=== PATIENT | male | born 1950 | race Caucasian/White ===

== ENCOUNTER 2025-04-26 17:53 | Observation (INO) | payer OTHER, SELFPAY ==
[2025-04-26 17:54] VITALS: BP 155/75; PULSE 92; RESP 16; TEMP 37.3; O2SAT 96; BMI 28.0
[2025-04-26 18:36] VITALS: BP 117/89; PULSE 79
--- NOTE | 2025-04-26 19:24 | CT_ITS ---
PROCEDURE: CT BRAIN/HEAD WITHOUT CONTRAST 04/26/2025 REASON FOR EXAM: FALL, UNWITNESSED TECHNIQUE: Procedure Code: CTBR Modality: CT Procedure: BRAIN/HEAD WITHOUT CONTRAST Coronal and Sagittal reconstruction series were provided. One or more dose reduction techniques were used (e.g., Automated exposure control, adjustment of the mA and/or kV according to patient size, use of iterative reconstruction technique. RADIATION DOSE SUMMARY: CTDlvol: 44.99 mGy DLP: 829.85 mGycm COMPARISON: None available. FINDINGS: No acute intracranial hemorrhage, extra-axial collection, mass effect or evidence of acute infarct. Moderate-advanced generalized brain parenchymal volume loss with associated ex vacuo ventricular enlargement. Mild chronic microangiopathic changes. Grossly unremarkable orbits. Intact skull base and calvarium. Well-aerated paranasal sinuses and mastoid air cells. CT/Brain/Head without Contrast IMPRESSION: No acute intracranial abnormality. Moderate-advanced generalized parenchymal volume loss. Reading Location: [id number]
--- NOTE | 2025-04-26 19:24 | RAD_ITS ---
PROCEDURE: CHEST 1 VIEW (PORTABLE) 04/26/2025 REASON FOR EXAM: FALL TECHNIQUE: Frontal view of the chest. COMPARISON: none FINDINGS: Mild pulmonary vascular congestion. No focal consolidation. No pleural effusion or pneumothorax. Cardiac silhouette is within normal limits. No acute fractures. RAD/Chest 1 View (Portable) IMPRESSION: Mild pulmonary vascular congestion. No focal consolidation. No acute fractures . Reading Location: [facility]
--- NOTE | 2025-04-26 19:25 | EKG12_ITS ---
Test Reason : DYSRHYTHMIA Blood Pressure : */* mmHG Vent. Rate : 111 BPM Atrial Rate : 111 BPM P-R Int : 182 ms QRS Dur : 82 ms QT Int : 332 ms P-R-T Axes : 67 52 39 degrees QTcB Int : 451 ms Sinus tachycardia Nonspecific ST abnormality Abnormal ECG Confirmed by Tom Irvin ([id number]), photo editor NAN GORDON ([id number]) on 04/27/2025 10:32:34 AM Referred By: Confirmed By: Tom Irvin
--- NOTE | 2025-04-26 19:26 | EDS_ITS ---
HPI HPI - Fall History of Present Illness Chief Complaint: Fall Informant: patient Narrative Narrative: Patient is a 75-year-old male with history of hypertension, hyperlipidemia, chronic venous insufficiency and seems to be dementia (ANO x 1 at baseline) as well as remote history of tobacco use presenting from [facility] (independent living) after he had a fall earlier today and is having right hip pain. EMS gave report. They state he is ANO x 1 at baseline. Patient does not think he hit his head. He has been able to walk but does continue to have right hip pain. He has no other complaints or concerns at this time. Does not recall how he fell and cannot answer why he fell [facility] Medical History Allergic rhinitis GERD (gastroesophageal reflux disease) Mood disorder Anxiety and depression CKD (chronic kidney disease), stage II HLD (hyperlipidemia) HTN (hypertension) Venous insufficiency of both lower extremities Home Medications ?Medication ?Instructions ?Recorded ?Last Taken ?Type amlodipine 5 mg tablet 5 mg PO DAILY 11/14/22 Unkno wn History aspirin 81 mg chewable tablet 81 mg PO DAILY 11/14/22 Unknown History benztropine 2 mg tablet 2 mg PO QHS 11/14/22 Unknown History cholecalciferol (vitamin D3) 50 50 mcg PO DAILY Unknown History mcg (2,000 unit) capsule citalopram 10 mg tablet 10 mg PO DAILY 11/14/22 Unkn own History loratadine 10 mg tablet 10 mg PO DAILY 11/14/22 Unkn own History pantoprazole 20 mg tablet,delayed 20 mg PO DAILY 11/14 Unknown History release trazodone 100 mg tablet 100 mg PO QHS 11/14/22 Unkno wn History haloperidol 20 mg tablet 20 mg PO QHS 04/26/25 Unknow n History Allergy/AdvReac Type Severity Reaction Status Date / Time No Known Allergies Allergy Unverified 11/14/22 13:11 Social History household members: none housing: assisted living facility Smoking Status: Unknown if ever smoked alcohol intake: never substance use type: does not use ROS ROS ED Review of Systems ROS Unobtainable: due to mental status Musculoskeletal Musculoskeletal: Reports other Details: right hip pain EXAM Physical Exam Const Vital Signs: 04/26/25 17:54 04/26/25 17:57 04/26/25 18:36 Temperature 99.2 F H Temperature Source Oral Pulse Rate 92 79 Respiratory Rate 16 Respiratory Effort Normal Blood Pressure 155/75 H 117/89 H Blood Pressure Mean 101 98 Pulse Ox 96 Oxygen Delivery Method Room Air 04/26/25 20:00 04/26/25 22:00 Temperature Temperature Source Pulse Rate 104 H 105 H Respiratory Rate 18 16 Respiratory Effort Blood Pressure 147/87 H 185/84 H Blood Pressure Mean 107 117 Pulse Ox 93 92 Oxygen Delivery Method Room Air Room Air Positive well nourished and well developed General Appearance ED: well developed and NAD HEENT Reports normocephalic and TM's clear HEENT Narrative: No hemotympanum. No facial trauma. No signs of basilar skull fracture. No septal hematoma present. atraumatic Tympanic Membrane ED: Yes TM's clear Eyes PERRL and EOMs intact bilaterally Neck full ROM General: Negative for tenderness Chest Wall inspection of chest normal and palpation of chest normal Resp normal respiratory effort and clear to auscultation bilaterally Cardio regular rate, regular rhythm and no murmurs GI non-tender and non-distended Palpation: soft Back/Spine Cervical Spine: Negative for cervical spine tenderness Thoracic Spine / Upper Back: Negative for thoracic spinal tenderness Lumbar Spine / Lower Back: Negative for lumbar spinal tenderness Extremity Extremity Narrative: Pelvis is stable. No obvious deformity of the upper extremities or lower extremities. Pain with palpation over the right hip. Mild pain with range of motion of the right hip. No other bony tenderness present. No joint effusions present Neuro moves all extremities and no focal motor deficits [place] Coma Scale: document GCS findings Spontaneous Obeys Commands Confused 14 Sensorium / Orientation: alert and oriented to person Motor Exam: strength 5/5 throughout Psych Psych Narrative: Poverty of speech. Only selectively answers questions. Attitude: agitated Skin Lesions: no lesions Rashes: no rashes MDM MDM MDM Narrative Medical decision making narrative: Patient evaluated for reported fall with subsequent right hip pain. Patient is quite a poor historian and based on his behavior I suspect he has some underlying dementia possibly with some behavioral disturbance. It does seem that he takes Haldol at night. Differential includes syncope, infection, intracranial hemorrhage, hip fracture, pelvic fracture, hip contusion, urinary tract infection or pneumonia. Workup including EKG, chest x-ray, CT of the brain, hip x-ray and lab work is obtained. Patient has a leukocytosis of 16.3 of uncertain clinical significance. There is no obvious sign of infection. Lab work is otherwise normal including the remainder of CBC, BMP, proBNP and urinalysis. Chest x-ray viewed by myself as well as radiology does show some mild pulmonary vascular congestion. He is not hypoxic and does not have any crackles on his exam. BNP was added on but this was normal. Hip x-ray viewed by myself as well as radiology does not show any acute fracture or dislocation. CT of the brain does not show any acute traumatic process. Given patient's pain (was given Tylenol in the ER) and I do not think he is adequately able to care for himself as he is in assisted living I do think he would benefit from admission for pain control, PT and OT evaluation and possible placement if needed. Patient does become agitated emergency room and seems to be sundowning. Is given a dose of IV Haldol in the emergency room. He tolerates this well. Case discussed with hospitalist for admission. History & Record Review Additional record(s) reviewed:: Prior outpatient record (Medication list) Lab Data Attestation: I reviewed the patient's lab results. Labs: Laboratory Results - last 24 hr 04/26/25 04/26/25 19:20 19:29 WBC 16.3 H RBC 4.58 L Hgb 14.0 Hct 40.8 MCV 89.1 MCH 30.6 MCHC 34.3 RDW Std Deviation 40.4 RDW Coeff of Neymar 12.4 Plt Count 145 L MPV 9.1 Immature Gran % (Auto) 0.600 Neut % (Auto) 86.1 H Lymph % (Auto) 6.6 L [place] % (Auto) 6.5 Eos % (Auto) 0.0 Baso % (Auto) 0.2 Absolute Neuts (auto) 14.0 H Absolute Lymphs (auto) 1.08 Nucleated RBC % 0 Sodium 137 Potassium 3.9 Chloride 103 Carbon Dioxide 21.8 Anion Gap 13 BUN 17 Creatinine 0.99 Estim Creat Clear Calc 71.11 Est GFR (MDRD) Non-Af 79 BUN/Creatinine Ratio 16.8 Glucose 131 H Calcium 9.1 NT pro BNP II 64 Procalcitonin 0.03 Urine Color Yellow Urine Clarity Clear Urine pH 6.5 Ur Specific [place] 1.015 Urine Protein 30 H Urine Glucose (UA) Normal Urine Ketones Negative Urine Occult Blood Negative Urine Nitrite Negative Urine Bilirubin Negative Urine Urobilinogen Normal Ur Leukocyte Esterase Negative Urine RBC 0-5 SEEN Urine WBC 0-5 SEEN Ur Squamous Epith Cells 0-5 SEEN Urine Bacteria 0 SEEN Urine Mucus 0 SEEN Radiography Chest X-Ray - ED: 1 View, Read by ED Physician, Read by Radiologist, No Acute Disease and CHF Diagnostic Testing: Clinical Impression(s) from Imaging Studies Brain CT 04/26/25 19:24 IMPRESSION: No acute intracranial abnormality. Moderate-advanced generalized parenchymal volume loss. Reading Location: [facility] Chest X-Ray 04/26/25 19:24 IMPRESSION: Mild pulmonary vascular congestion. No focal consolidation. No acute fractures. Reading Location: [facility] Hip/Pelvis X-Ray 04/26/25 19:45 IMPRESSION: No acute fracture or dislocation. Reading Location: [facility] Rhythm Strip Rhythm Strip: Sinus Tach Rate: 111 Ectopy: None EKG Initial EKG: Attestation: I personally reviewed and interpreted this EKG as follows: Interpretation: Sinus Tachycardia Comments: Sinus tachycardia at a rate of 111 bpm Normal axis Normal intervals No ST segment Management Discussion w/another healthcare provider: Hospitalist Discharge Plan Dx/Rx/DC Orders Clinical Impression: Right hip pain, Fall, Leukocytosis, Agitation Disposition Disposition: Acute Care Hospital [facility] Discharge Date/Time: 04/26/25 23:12
[2025-04-26 19:34] LABS: Mucous, Urine 0 SEEN /hpf (<or=2+)
[2025-04-26] MEDS: 0.9% Normal Saline (1000mL) 1,000 ML 150 ML IV (19:35)
[2025-04-26] MEDS: fentaNYL 100 MCG/2 ML Ampul 50 MCG IV (19:36)
--- NOTE | 2025-04-26 19:45 | RAD_ITS ---
PROCEDURE: RIGHT HIP, UNI W/ PELVIS 2-3 VIEWS 04/26/2025 REASON FOR EXAM: PAIN, FALL TECHNIQUE: Procedure Code: RAD Modality: DX Procedure: HIP, UNI W/ PELVIS 2-3 VIEWS Laterality: Right COMPARISON: None. FINDINGS: No acute fracture or dislocation. Alignment is anatomic. Preserved joint spaces. No aggressive osseous lesion. No marked soft tissue swelling or radiopaque foreign body. RAD/HIP, UNI W/ Pelvis 2-3 Views IMPRESSION: No acute fracture or dislocation. Reading Location: [id number]
[2025-04-26 19:47] LABS: Color, Urine Yellow (Yellow); Glucose, Dipstick Normal (Normal); Ketone-Dipstick Negative (Negative); Leukocyte Esterase-Dipstick Negative /ul (Negative); Nitrite-Dipstick Negative (Negative); Occult Blood-Urine Negative /ul (Negative); Protein-Dipstick 30 mg/dl (Negative); Specific Gravity, Urine 1.015 (1.002-1.030); Urine Bilirubin Dipstick Negative (Negative)
[2025-04-26 19:47] LABS: Hematocrit 40.8 % (40-54); Hemoglobin 14.0 g/dL (13.0-16.5); Immature Granulocytes Count 0.090 X10^3/uL (0.0-0.0); Mean Corp Hgb Conc 34.3 g/dL (32-36); Mean Corpuscular Volume 89.1 fL (80-94); Mean Platelet Vol. 9.1 fl (6.2-12.0); NRBC Flagged by Analyzer 0 % (0-5); Platelet Count 145 K/mm3 (150-450); RBC Distribution Width CV 12.4 % (11.6-14.6); RBC Distribution Width SD 40.4 fl (35.1-43.9); Red Blood Count 4.58 M/mm3 (4.6-6.2); White Blood Count 16.3 K/mm3 (4.4-11.0)
[2025-04-26 19:58] LABS: Anion Gap 13 (5-15); BUN 17 mg/dL (4-19); BUN/Creat Ratio 16.8 RATIO (10-20); Calcium,Total 9.1 mg/dL (7.6-11.0); Carbon Dioxide 21.8 mmol/L (21.0-32.0); Chloride 103 mmol/L (98-108); Estimated Creatinine Clearance 71.11 ml/min (50-250); Glucose 131 mg/dL (70-99); Potassium 3.9 mmol/L (3.3-5.1)
[2025-04-26 20:00] VITALS: BP 147/87; PULSE 104; RESP 18; O2SAT 93
[2025-04-26 21:31] LABS: Red Blood Cells-Urine 0-5 SEEN /hpf (0-5); Squamous Epithelial Cells - UA 0-5 SEEN /hpf (0-5)
[2025-04-26 22:00] VITALS: BP 185/84; PULSE 105; RESP 16; O2SAT 92
[2025-04-26 22:04] LABS: Pro- Brain NATRIURETIC PEPTIDE 64 pg/mL (<=1800)
--- NOTE | 2025-04-26 22:32 | PCM.HP.STD ---
HPI - General General Date of Admission: 04/26/25 Date of Service: 04/26/25 Chief Complaint: Fall, R hip pain. HPI Narrative The patient is a 75 y/o M w/ PMHx: CKD stage II per GFR trending, Anxiety and depression/mood disorder, Allergic rhinitis, GERD, HTN, HLD, Chronic venous insufficiency with chronic bilateral extremity edema, Dementia unclear type with unclear behavior disturbance history with ANO x 1 at baseline, Former tobacco use who presents to the [facility] ED on 04/26/2025 with history of mechanical fall earlier in the day with persistent ongoing right hip pain currently living at [facility] in the potentially assisted living section and given persistent pain prompted ED evaluation. Workup in the ED included T99.2, heart rate 92, BP 155/75, respiratory rate 16, 96% on room air with most recent repeat vitals heart rate 105, BP 185/84, respiratory rate 16, 92% on room air, CBC with WBC 16.3, hemoglobin 14, platelet 145 with left shift, BMP with glucose 131 otherwise unremarkable, NT proBNP 264, urinalysis unremarkable, CT brain with no acute intracranial finding with moderate intense generalized parenchymal volume loss, chest x-ray with mild pulmonary vascular congestion with no acute findings otherwise, plain film of the right hip and pelvis with no acute fracture or dislocation. In the ED patient ministered Tylenol 650 mg p.o. x 1, fentanyl 50 mcg IV x 1, Zofran 4 mg IV x 1 as well as Haldol 2 mg IV x 1 in addition to maintenance IV fluids. In the ED patient remains ANO x 1 and does not answer questions yes and no but will not give any historical information. He is currently not aggressive or agitated but previously was per discussion with ED physician and did require a sitter. He is baseline on Haldol of note. ED was able to contact patient the assisted living who noted that he is listed as a full code and has a manager nicu at the [facility] named Jemma who is his legal guardian. [facility] Medical History Allergic rhinitis GERD (gastroesophageal reflux disease) Mood disorder Anxiety and depression CKD (chronic kidney disease), stage II HLD (hyperlipidemia) HTN (hypertension) Venous insufficiency of both lower extremities Home Medications ?Medication ?Instructions ?Recorded ?Last Taken ?Type amlodipine 5 mg tablet 5 mg PO DAILY 11/14/22 Unknown History aspirin 81 mg chewable tablet 81 mg PO DAILY 11/14/22 Unknown History benztropine 2 mg tablet 2 mg PO QHS 11/14/22 Unknown History cholecalciferol (vitamin D3) 50 50 mcg PO DAILY 11/14/22 Unknown History mcg (2,000 unit) capsule citalopram 10 mg tablet 10 mg PO DAILY 11/14/22 Unknown History loratadine 10 mg tablet 10 mg PO DAILY 11/14/22 Unknown History pantoprazole 20 mg tablet,delayed 20 mg PO DAILY 11/14/22 Unknown History release trazodone 100 mg tablet 100 mg PO QHS 11/14/22 Unknown History haloperidol 20 mg tablet 20 mg PO QHS 04/26/25 Unknown History Allergy/AdvReac Type Severity Reaction Status Date / Time No Known Allergies Allergy Unverified 11/14/22 13:11 unable to obtain unable to obtain Social History (Updated 04/26/25 @ 23:[address] Janay Neal MD) household members: none housing: assisted living facility Smoking Status: Unknown if ever smoked alcohol intake: never substance use type: does not use ROS Review of Systems ROS Unobtainable: due to mental condition Vital Signs Vital Signs Vital Signs: 04/26/25 17:54 04/26/25 17:57 04/26/25 18:36 Temperature 99.2 F H Temperature Source Oral Pulse Rate 92 79 Respiratory Rate 16 Respiratory Effort Normal Blood Pressure 155/75 H 117/89 H Blood Pressure Mean 101 98 Pulse Ox 96 Oxygen Delivery Method Room Air 04/26/25 20:00 04/26/25 22:00 Temperature Temperature Source Pulse Rate 104 H 105 H Respiratory Rate 18 16 Respiratory Effort Blood Pressure 147/87 H 185/84 H Blood Pressure Mean 107 117 Pulse Ox 93 92 Oxygen Delivery Method Room Air Room Air Weight Weight: 195 lb 1.745 oz Body Mass Index (BMI) 28.0 Physical Exam Narrative Physical Examination: General: Awake, alert, oriented to self only, will answer yes and no to questions but cannot give any historical data or carry on a conversation, does have significant underlying dementia of unclear type/extent. Skin: Normal color, normal turgor, no icterus, no cyanosis except occasional stage ecchymoses, abrasion as well as bilateral lower extremity venous stasis skin changes. HEENT: AT/NC, EOMI, PERRLA, mildly dry MM, no carotid bruits or JVD noted. Lungs: CTA bilaterally, moderate effort, mild decrease BL bases, no rales, ronchi or wheezing. Heart: Regular rate and rhythm; no gallop, rub audible. Abdomen: Soft, NTTP, ND, hyperactive BS, no appreciated HSM. Extremities: No cyanosis, no clubbing, no significant distal edema, peripheral pulses intact, some discomfort elicited with palpation of the right hip but no severe grimacing. Neurological: Patient awake, alert, oriented as noted, cognitive function significantly decreased baseline with underlying dementia of unclear type and unclear extent intact and suspect these mildly worsened from his baseline given pain, pupils equally reactive to light and accommodation, cranial nerves grossly normal, moving all 4 extremities including right lower extremity spontaneously in the bed, no obvious focal deficits, strength moderately globally decreased. Psychiatric: Affect appears currently calm, flat no acute evidence of depressive or anxiety feelings/mood disorder per very limited assisted living history provided. Results Lab / Micro Data 04/26/25 19:29 04/26/25 19:29 Labs: Laboratory Results - last 24 hr 04/26/25 19:20: Urine Color Yellow, Urine Clarity Clear, Urine pH 6.5, Ur Specific [place] 1.015, Urine Protein 30 H, Urine Glucose (UA) Normal, Urine Ketones Negative, Urine Occult Blood Negative, Urine Nitrite Negative, Urine Bilirubin Negative, Urine Urobilinogen Normal, Ur Leukocyte Esterase Negative, Urine RBC 0-5 SEEN, Urine WBC 0-5 SEEN, Ur Squamous Epith Cells 0-5 SEEN, Urine Bacteria 0 SEEN, Urine Mucus 0 SEEN 04/26/25 19:29: WBC 16.3 H, RBC 4.58 L, Hgb 14.0, Hct 40.8, MCV 89.1, MCH 30.6, MCHC 34.3, RDW Std Deviation 40.4, RDW Coeff of Neymar 12.4, Plt Count 145 L, MPV 9.1, Immature Gran % (Auto) 0.600, Neut % (Auto) 86.1 H, Lymph % (Auto) 6.6 L, [place] % (Auto) 6.5, Eos % (Auto) 0.0, Baso % (Auto) 0.2, Absolute Neuts (auto) 14.0 H, Absolute Lymphs (auto) 1.08, Nucleated RBC % 0, Sodium 137, Potassium 3.9, Chloride 103, Carbon Dioxide 21.8, Anion Gap 13, BUN 17, Creatinine 0.99, Estim Creat Clear Calc 71.11, Est GFR (MDRD) Non-Af 79, BUN/Creatinine Ratio 16.8, Glucose 131 H, Calcium 9.1, NT pro BNP II 64 Imaging Radiology Impression Brain CT 04/26/25 19:24 IMPRESSION: No acute intracranial abnormality. Moderate-advanced generalized parenchymal volume loss. Reading Location: [facility] Chest X-Ray 04/26/25 19:24 IMPRESSION: Mild pulmonary vascular congestion. No focal consolidation. No acute fractures. Reading Location: [facility] Hip/Pelvis X-Ray 04/26/25 19:45 IMPRESSION: No acute fracture or dislocation. Reading Location: [facility] Assessment & Plan Assessment/Plan (1) Right hip pain: PLAN: Plan The patient is a 75 y/o M w/ PMHx: CKD stage II per GFR trending, Anxiety and depression/mood disorder, Allergic rhinitis, GERD, HTN, HLD, Chronic venous insufficiency with chronic bilateral extremity edema, Dementia unclear type with unclear behavior disturbance history with ANO x 1 at baseline, Former tobacco use who presents to the [facility] ED on 04/26/2025 with history of mechanical fall earlier in the day with persistent ongoing right hip pain currently living at [facility] in the independent living section and given persistent pain prompted ED evaluation. #1. Mechanical fall with intractable R hip pain, debility, adult FTT: Given severity of pain and significant debility underlying with dementia with suspected behavioral component but unconfirmed will admit to medical surgical floor, will continue sitter, will continue patient mood disorder medication including Haldol, maintain on fall precautions, will initiate topical pain compound to the right hip in addition to as needed oral/IV breakthrough medications, will consult PT/OT/case management for discharge planning. Pending response may need to consider follow-up CT right hip if ongoing debility/pain. #2. Leukocytosis, unclear etiology: Unclear etiology, chest x-ray and urinalysis without marked finding, will obtain procalcitonin and if elevated low threshold to juices to hydrate and potentially repeat chest x-ray in a.m. to assure no developing pneumonia but certainly could be reactive and patient could be dehydrated. #3. Bilateral lower extremity venous insufficiency: Will continue send Donal wraps, elevation and SCDs, noted most recent vascular surgery visit 11/14/2022 and [facility]. #4. Chronic Kidney Disease Stage II per GFR trending: Admission BUN/Cr 17/0.99, GFR 79, baseline renal function known thus it is uncertain if he is exactly stage II but primary records are at the [place], repeat BMP in AM to assist in further elucidating. #5. Hypertension: Continue home regimen including amlodipine although this could be somewhat contributing to patient chronic lower extremity swelling of note., PRN hydralazine. #6. Hyperlipidemia: Continue patient home statin therapy. #7. Anxiety and depression/mood disorder: Complicates presentation, likely exacerbated by underlying dementia, will continue patient home Haldol, trazodone, benztropine home regimen. #8. Allergic rhinitis: Will continue patient home loratadine regimen. #9. GERD: Continue home PPI. #10. DVT prophylaxis: Lovenox. #11. CODE status: Patient per assisted living is a full code with legal guardian noted to be Willem who is a lead case manager at the [place]. Charges/Coding Visit Charges Inpatient E&M: 73754 Init Hosp L2
--- NOTE | 2025-04-26 22:45 | PCA ---
[facility] called, chart faxed
[2025-04-26 23:08] VITALS: BP 170/76; PULSE 106; RESP 18; TEMP 37; O2SAT 94
--- NOTE | 2025-04-26 23:09 | ED.RN ---
This RN attempted to call Aiden Olivas in order to discuss the patient's plan of care while at [facility], however this RN was sent to voicemail.
[2025-04-26 23:42] VITALS: BP 126/54; PULSE 115; RESP 18; TEMP 36.6; O2SAT 96
--- OUTSIDE RECORDS SUMMARY | 2025-04-26 23:46 | XMS RPT_ITS | CCD ---
Author Organization [facility] Care Team Providers Care [employer] Teacher Name Role Phone Fe Cornell Attending Unavailable Fe Cornell Attending Unavailable Dr. Jeannine Berman DO Emergency Provider Care Physician, No Primary Primary Care Provider Unavailable Dr. Janay Neal MD Admit Provider [phone] Dr. Janay Neal MD Attending Provider Medications Current Medications Medication Drug Class(es) Dates Sig (Normalized) Sig (Original) amLODIPine 5 mg oral tablet (1 source) Dihydropyridine Calcium Channel Princess Start: 11-14-2022 take 1 tablet by mouth once daily Amlodipine 5 mg tablet Active 5 mg PO DAILY November 14, 2022 12:00am aspirin 81 mg chewable tablet (1 source) Platelet Aggregation Inhibitor, Nonsteroidal Anti-inflammatory Drug Start: 11-14-2022 take 1 tablet by mouth once daily Aspirin 81 mg tablet,chewable Active 81 mg PO DAILY November 14, 2022 12:00am benztropine mesylate 2 mg oral tablet (1 source) Anticholinergic, Antihistamine Start: 11-14-2022 take 1 tablet by mouth once daily Benztropine 2 mg tablet Active 2 mg PO DAILY November 14, 2022 12:00am cholecalciferol 0.05 mg oral capsule (1 source) Vitamin D Start: 11-14-2022 take 1 capsule by mouth once daily Cholecalciferol (Vitamin D3) 50 mcg (2,000 unit) capsule Active 50 ug PO DAILY November 14, 2022 12:00am citalopram 10 mg oral tablet (1 source) Serotonin Reuptake Inhibitor Start: 11-14-2022 take 1 tablet by mouth once daily Citalopram 10 mg tablet Active 10 mg PO DAILY November 14, 2022 12:00am haloperidol 5 mg oral tablet (1 source) Typical Antipsychotic Start: 11-14-2022 take 4 tablets by mouth at bedtime Haloperidol 5 mg tablet Active 20 mg PO AT BEDTIME November 14, 2022 12:00am loratadine 10 mg oral tablet (1 source) Start: 11-14-2022 take 1 tablet by mouth once daily Loratadine 10 mg tablet Active 10 mg PO DAILY November 14, 2022 12:00am pantoprazole 20 mg delayed release oral tablet (1 source) Proton Pump Inhibitor Start: 11-14-2022 take 1 tablet by mouth once daily Pantoprazole 20 mg tablet,delayed release (DR/EC) Active 20 mg PO DAILY November 14, 2022 12:00am traZODone hydrochloride 100 mg oral tablet (1 source) Serotonin Reuptake Inhibitor Start: 11-14-2022 take 1 tablet by mouth once daily Trazodone 100 mg tablet Active 100 mg PO DAILY November 14, 2022 12:00am Completed/Discontinued Medications Medication Drug Class(es) Dates Sig (Normalized) Sig (Original) atorvastatin 40 mg oral tablet (1 source) HMG-CoA Reductase Inhibitor Start: 11-14-2022 take 1 tablet by mouth at bedtime Atorvastatin 40 mg tablet Discontinued 40 mg PO AT BEDTIME November 14, 2022 12:00am Problems Problem Classification Problem Date Documented Date Episodic/Chronic Other diseases of veins and lymphatics (1 source) Venous insufficiency (chronic) (peripheral); Translations: [Venous insufficiency (chronic) (peripheral)] Onset: 11-14-2022 Episodic Other diseases of veins and lymphatics (1 source) Venous insufficiency of leg; Translations: [Venous insufficiency (chronic) (peripheral)] 04-26-2025 Episodic Results Test Name Value Interpretation Reference Range Facility Absolute lymphocyte countOrd ered By: Jeannine Berman on 04-26-2025 Lymphocytes Auto (Unsp spec) [#/Vol] 1.08 10*3/uL 0.83-4.51 [facility] Absolute neutrophil countOrd ered By: Jeannine Berman on 04-26-2025 Neutrophils (Bld) [#/Vol] 14.0 10*3/uL High 2.0-7.7 [facility] Anion gap in Serum or Plasma Ordered By: Jeannine Berman on 04-26-2025 Anion gap [Moles/Vol] 13 mmol/L 5-15 [facility] Automated lymphocyte count a s percentage of total leukocytesOrdered By: Jeannine Berman on 04-26-2025 Lymphocytes/100 WBC Auto (Unsp spec) 6.6 % Low 19-41 [facility] BUN/creatinine ratioOrdered By: Jeannine Berman on 04-26-2025 Urea nitrogen/Creatinine [Mass ratio] 16.8 mg/mg 10-20 [facility] Basophil percentageOrdered B y: Jeannine Berman on 04-26-2025 Basophils/100 WBC (Bld) 0.2 % 0-1 [facility] Bilirubin Test strip Ql (U)O rdered By: Jeannine Berman on 04-26-2025 Bilirubin Ql (U) Negative Negative [facility] Carbon dioxide, total [Moles /volume] in Central venous bloodOrdered By: Jeannine Berman on 04-26-2025 CO2 [Moles/Vol] 21.8 mmol/L 21.0-32.0 [facility] Chloride assayOrdered By: Ricardo Berman on 04-26-2025 Chloride [Moles/Vol] 103 mmol/L 98-108 [facility] Eosinophil percentageOrdered By: Jeannine Berman on 04-26-2025 Eosinophils/100 WBC (Bld) 0.0 % 0-5 [facility] Erythrocyte distribution wid th ratioOrdered By: Jeannine Berman on 04-26-2025 Erythrocyte distribution width (RBC) [Ratio] 12.4 % 11.6-14.6 [facility] Erythrocyte distribution wid th standard deviationOrdered By: Jeannine Berman on 04-26-2025 Erythrocyte distribution width (RBC) [Ratio] 40.4 fl 35.1-43.9 [facility] Glomerular filtration rate ( GFR) estimation/1.73 sq m using serum, plasma, or whole bOrdered By: Jeannine Berman on 04-26-2025 GFR/1.73 sq M.predicted among non-blacks MDRD (S/P/Bld) [Vol rate/Area] 79 mL/min/{1.73_m2} >60 [facility] Comment on above: mL/min/1.73m2 CKD-EP I Creatinine Equation (2020) Hematocrit Auto (Bld) [Volum e fraction]Ordered By: Jeannine Berman on 04-26-2025 Hematocrit (Bld) [Volume fraction] 40.8 % 40-54 [facility] Hemoglobin measurementOrdere d By: Jeannine Berman on 04-26-2025 Hemoglobin (Bld) [Mass/Vol] 14.0 g/dL 13.0-16.5 [facility] Immature granulocytes/100 WB C Auto (Bld)Ordered By: Jeannine Berman on 04-26-2025 Immature granulocytes/100 WBC (Bld) 0.600 % 0.0-0.9 [facility] Comment on above: IG% - Immature Granu locytes (promyelocytes, myelocytes and metamyelocytes) > 1% indicates that a LEFT SHIFT is Present. Ketones Test strip Ql (U)Ord ered By: Jeannine Berman on 04-26-2025 Ketones Ql (U) Negative Negative [facility] MCV (mean corpuscular volume ) determinationOrdered By: Jeannine Berman on 04-26-2025 MCV (RBC) [Entitic vol] 89.1 fL 80-94 [facility] Mean corpuscular hemoglobin (MCH) determinationOrdered By: Jeannine Berman on 04-26-2025 MCH (RBC) [Entitic mass] 30.6 pg 27.0-32.0 [facility] Mean corpuscular hemoglobin concentration (MCHC) determinationOrdered By: Jeannine Berman on 04-26-2025 MCHC (RBC) [Mass/Vol] 34.3 g/dL 32-36 [facility] Mean platelet volume determi nationOrdered By: Jeannine Berman on 04-26-2025 Platelet mean volume (Bld) [Entitic vol] 9.1 fL 6.2-12.0 [facility] Microscopic analysis of urin e for red blood cells (RBC)Ordered By: Jeannine Berman on 04-26-2025 Microscopic analysis of urine for red blood cells (RBC) 0-5 SEEN /hpf 0-5 [facility] Monocyte percentageOrdered B y: Jeannine Berman on 04-26-2025 Monocytes/100 WBC (Bld) 6.5 % 0-10 [facility] Mucus LM Ql (Urine sed)Order ed By: Jeannine Berman on 04-26-2025 Mucus Ql (Urine sed) 0 SEEN /hpf [facility] Natriuretic peptide.B prohor farrah N-Terminal [Mass/volume] in Serum or PlasmaOrdered By: Jeannine Berman on 04-26-2025 Natriuretic peptide.B prohormone N-Terminal [Mass/Vol] 64 pg/mL <1800 [facility] Comment on above: Heart Failure Unlike ly: < 300 pg/mLHeart Failure Likely< 50 Years: > 450 pg/mL50-75 Years: > 900 pg/mL>75 Years: > 1800 pg/mL Neutrophil percentageOrdered By: Jeannine Berman on 04-26-2025 Neutrophils/100 WBC (Bld) 86.1 % High 47-70 [facility] Nitrite Test strip Ql (U)Ord ered By: Jeannine Berman on 04-26-2025 Nitrite Ql (U) Negative Negative [facility] Nucleated red blood cell per centageOrdered By: Jeannine Berman on 04-26-2025 Nucleated RBC/100 WBC (Bld) [Ratio] 0 % 0-5 [facility] Platelet countOrdered By: Ricardo Berman on 04-26-2025 Platelets (Bld) [#/Vol] 145 10*3/uL Low 150-450 [facility] Potassium measurement (mass/ volume)Ordered By: Jeannine Berman on 04-26-2025 Potassium (Unsp spec) [Mass/Vol] 3.9 mmol/L 3.3-5.1 [facility] Protein Test strip Ql (U)Ord ered By: Jeannine Berman on 04-26-2025 Protein Ql (U) 30 mg/dl High Negative [facility] RBC Auto (Bld) [#/Vol]Ordere d By: Jeannine Berman on 04-26-2025 RBC (Bld) [#/Vol] 4.58 10*6/uL Low 4.6-6.2 [facility] Serum creatinine measurement (mass/volume)Ordered By: Jeannine Berman on 04-26-2025 Creatinine [Mass/Vol] 0.99 mg/dL 0.70-1.20 [facility] Serum glucose measurement (m ass/volume)Ordered By: Jeannine Berman on 04-26-2025 Glucose [Mass/Vol] 131 mg/dL High 70-99 [facility] Serum or plasma calcium brenda urement (mass/volume)Ordered By: Jeannine Berman on 04-26-2025 Calcium [Mass/Vol] 9.1 mg/dL 7.6-11.0 [facility] Serum or plasma urea nitroge n measurement (mass/volume)Ordered By: Jeannine Berman on 04-26-2025 Urea nitrogen [Mass/Vol] 17 mg/dL 4-19 [facility] Sodium levelOrdered By: Jose Berman on 04-26-2025 Sodium [Moles/Vol] 137 mmol/L 133-145 [facility] Squamous epithelial cells de tection in urine sediment by light microscopyOrdered By: Jeannine Berman on 04-26-2025 Epithelial cells.squamous LM Ql (Urine sed) 0-5 SEEN /hpf 0-5 [facility] Urine clarityOrdered By: Nury Berman on 04-26-2025 Clarity (U) Clear Clear [facility] Urine color determinationOrd ered By: Jeannine Berman on 04-26-2025 Color (U) Yellow Yellow [facility] Urine glucose detectionOrder ed By: Jeannine Berman on 04-26-2025 Glucose Ql (U) Normal mg/dl Normal [facility] Urine leukocyte esterase det ection by dipstickOrdered By: Jeannine Berman on 04-26-2025 Leukocyte esterase Test strip Ql (U) Negative Negative [facility] Urine pHOrdered By: Jeannine jacinto on 04-26-2025 pH (U) 6.5 [pH] 5.0 - 8.0 [facility] Urine sediment bacteria coun t by microscopy (number/high power field)Ordered By: Jeannine Berman on 04-26-2025 Bacteria LM.HPF (Urine sed) [#/Area] 0 /[HPF] None Seen [facility] Urine specific gravity measu rementOrdered By: Jeannine Berman on 04-26-2025 Specific gravity (U) [Rel density] 1.015 1.002-1.030 [facility] Urine urobilinogen measureme ntOrdered By: Jeannine Caomontse on 04-26-2025 Urobilinogen Ql (U) Normal mg/dl Normal [facility] White blood cell (WBC) count Ordered By: Jeannine Nashmontse on 04-26-2025 WBC (Bld) [#/Vol] 16.3 10*3/uL High 4.4-11.0 [facility] White blood cell countOrdere d By: Jeannine Berman on 04-26-2025 White blood cell count 0-5 SEEN /hpf 0-5 [facility] MR/BMS.BVSon 11-14-2022 MR/BMS.BVS [facility] [address] [place] [address] OFFICE VISIT Date of Service: 11/14/22 MR#: [id number] Acct: [id number] Name: YUMIKOJORGE LUISLONGBENITO LEOS Rep #: [id number] : 1950 Provider: NA daley Age/Sex: 72/M Location: [facility] Status: Signed Intake Vital Signs 11/14/22 13:07 Weight: 185 lb 5 oz BP 124/76 H Blood Pressure Location Rt brachial Position Sitting Respiration 18 Pulse 74 Pulse Source Monitor Pulse Oximetry (%) 97 Oxygen Delivery Method room air Intake Visit Reasons: VENOUS VALVULAR INSUFFICIENCY Is patient in pain?: No Allergies No Known Allergies Allergy (Unverified 11/14/22 13:11) Medications amlodipine 5 mg tablet 5 mg PO DAILY 11/14/22 [History Confirmed 11/14/22] aspirin 81 mg chewable tablet 81 mg PO DAILY 11/14/22 [History Confirmed 11/14/22] atorvastatin 40 mg tablet 40 mg PO QHS 11/14/22 [History Confirmed 11/14/22] benztropine 2 mg tablet 2 mg PO DAILY 11/14/22 [History Confirmed 11/14/22] cholecalciferol (vitamin D3) 50 mcg (2,000 unit) capsule 50 mcg PO DAILY 11/14/22 [History Confirmed 11/14/22] citalopram 10 mg tablet 10 mg PO DAILY 11/14/22 [History Confirmed 11/14/22] haloperidol 5 mg tablet 5 mg PO QHS 11/14/22 [History Confirmed 11/14/22] loratadine 10 mg tablet 10 mg PO DAILY 11/14/22 [History Confirmed 11/14/22] pantoprazole 20 mg tablet,delayed release 20 mg PO DAILY 11/14/22 [History Confirmed 11/14/22] trazodone 100 mg tablet 100 mg PO DAILY 11/14/22 [History Confirmed 11/14/22] HPI HPI HPI: BENITO YOUSSEF, is a 72 M who presents to the office today for evaluation of venous insufficiency as [facility]. Patient is from assisted living facility, accompanied by employee from facility. Patient seems overall alert and oriented, but does seem a bit confused at times and may not be the best historian. Patient is unsure why he is here, and person accompanying him states he thinks it is to f/u regarding some lower extremity discoloration. Unfortunately, having a lot of difficulty obtaining [facility] records from [facility] and[facility] facility. Patient does report concern regarding the discoloration at his ankles bilaterally and notes a fading bruise to the left medial calf, he is concerned these are cancer but does say his [facility] provider said they were not. He tells me the [facility] is supposed to be getting him compression stockings, but it has been several weeks and he has yet to receive any. He does not think he has had any imaging of his lower extremities. He says he sometimes has swelling in his lower legs but not too bad and denies any significant pain/aching of the BLE. He denies history of VTE, prior venous ablation or stripping, prior vascular intervention. He denies claudication symptoms, nonhealing wounds, coldness/numbness in his BLE, CP, SOB, palpitations, N/V, F/C. He does not take any anticoagulation. He is not on any blood thinners. He quit smoking about 30 years ago. He is not diabetic. ROS General General: Yes weight change and fatigue; No appetite, colon cancer, breast cancer or weakness HEENT HEENT: No difficulty swallowing, eye injury, eye surgery, swollen glands or hoarseness Endo Endocrine: No thyroid disease, diabetes mellitus, thyroid cancer, Hair loss, heat intolerance or cold intolerance Skin Skin: Yes changing moles; No rash Musc Musculoskeletal: No back problems, arthritis, rheumatoid arthritis, gout or joint pain Cardio Cardiovascular: No murmur, pacemaker, heart disease, atrial fibrillation, high blood pressure, heart attack, heart stent, palpitations, shortness of breat with exertion or chest pain Psych Psychiatric: Yes depression and anxiety; No hearing voices Resp Respiratory: No shortness of breath, No sleep apnea, Yes cough, No COPD, No asthma, No emphysema and No wheezing Gastro Gastrointestinal: No abdominal pain, Yes nausea or vomiting, Yes diarrhea, Yes constipation, No blood in stool, No acid reflux, No hemorrhoids, No ulcers, No gallbladder problem and No black,tarry stools [facility] Hematologic: No blood thinners, No blood disorders, No bleeding, No anemia and No blood clots Neuro Neurologic: No system reviewed and no additional complaints, except as documented, No as per HPI, No abnormal gait, No abnormal hearing, No abnormal movements, No abnormal speech, No behavioral changes, No burning sensations, No confusion, No convulsions, No disequilibrium, No dizziness, No localized weakness, No frequent falls, No headache(s), No lack of coordination, No loss of vision, No memory loss, No numbness, No other visual disturbances, No radicular pain, No restless legs, No sensory deficit, No syncope, No tingling, No tremor(s), No weakness and No other Exam Const General: cooperative, healthy appearing, comfortable (more content not included)... Normal [facility] Vital Signs Date Time Vital Sign Value Performing Clinician Faci lity 04-26-2025 23:08-0400 Body temperature 98.6 [degF] Dr. Jeannine Berman DO Work Phone: [facility] 04-26-2025 23:08-0400 Diastolic blood pressure 76 mm[Hg] Dr. Jeannine Berman DO Work Phone: [facility] 04-26-2025 23:08-0400 Heart rate 106 /min Dr. Jeannine Berman DO Work Phone: [facility] 04-26-2025 23:08-0400 Respiratory rate 18 /min Dr. Jeannine Berman DO Work Phone: [facility] 04-26-2025 23:08-0400 SaO2% (BldA) [Mass fraction] 94 % Dr. Jeannine Berman DO Work Phone: [facility] 04-26-2025 23:08-0400 Systolic blood pressure 170 mm[Hg] Dr. Jeannine Berman DO Work Phone: [facility] 04-26-2025 17:54-0400 Body height 177.[address] Jeannine Berman DO Work Phone: [facility] 04-26-2025 17:54-0400 Body mass index (BMI) [Ratio] 28 kg/m2 Dr. Jeannine Berman DO Work Phone: [facility] 04-26-2025 17:54-0400 Body weight 88.[address] Jeannine Berman DO Work Phone: [facility] Encounters Encounter Date Encounter Type Care Provider Facility Start: 04-26-2025 Evaluation and management of inpatient Dr. Janay Neal MD -[facility] Work Phone: Start: 04-26-[address] Jose Berman DO Work Phone: -[facility] Start: 11-14-2022 ambulatory [facility] Faci lity:[facility] Start: 11-14-2022 End: 11-14-2022 ambulatory [facility] Facility:[facility] Procedures Date Procedure Procedure Detail Performing Clinician Start: 04-26-2025 Plain x-ray of pelvi s and lower extremity Dr. Jeannine Berman DO Work Phone: Start: 04-26-[address] Jeannine Berman DO Work Phone: Start: 04-26-2025 CT of head without contrast Dr. Jeannine Berman DO Work Phone: Start: 04-26-2025 Plain chest X-ray Dr. Kailey Berman DO Work Phone: Start: 04-26-2025 Urnls dip stick/tabl et reagent auto microscopy Dr. Jeannine Berman DO Work Phone: Plan of Treatment Date Care Activity Detail Author Start: 04-26-2025 Verification routine Wo rom[facility] Start: 04-26-2025 Admission procedure [facility] Start: 04-26-2025 Hospital admission, emergency, from emergency room, medical nature [facility] Start: 04-26-2025 [facility] Payers Date Payer Category Payer Unknown [id number] 2022 Self-pay Unknown [id number] Unknown [id number] Unknown [id number] 29 Social History Date Type Detail Facility Start: 04-26-2025 Tobacco smoking stat [facility] Never smoked tobacco (finding) [facility] Start: 1950 Sex Assigned At Male [facility] Radiology Diagnostic study note 04-26-2025 Note Date & Type Note Facility 04-26-2025 Radiology Diagnostic study note [facility] Imaging Services [address] [place] [address] HIP, UNI W/ Pelvis 2-3 Views MR#: [id number] Acct: [id number] Name: BENITO YOUSSEF Rep #: [id number] : 1950 M 75 From: Joss Tomlin MD PCP: Care Physician,No Primary Status: REG ER Study:HIP, UNI W/ Pelvis 2-3 Views Date of Ex am: 04/26/25 Exam# [id number] Ordering Dr: Kailey Berman DO PROCEDURE: RIGHT HIP, UNI W/ PELVIS 2-3 VIEWS 04/26/2025 REASON FOR EXAM: PAIN, FALL TECHNIQUE: Procedure Code: RADHP Modality: DX Procedure: HIP, UNI W/ PELVIS 2-3 VIEWS Laterality: Right COMPARISON: None. FINDINGS: No acute fracture or dislocation. Alignment is anatomic. Preserved joint spaces.No aggressive osseous lesion. No marked soft tissue swelling or radiopaque foreign body. RAD/HIP, UNI W/ Pelvis 2-3 Views IMPRESSION: No acute fracture or dislocation. Reading Location: [id number] CC: Dr. Jeannine Berman DO; No Primary Care Physician ~ Analysis Reporting Developer: Signed [facility] Radiology Diagnostic study note 04-26-2025 Note Date & Type Note Facility 04-26-2025 Radiology Diagnostic study note [facility] Imaging Services [address] [place] [address] Chest 1 View (Portable) MR#: [id number] Acct: [id number] Name: BENITO YOUSSEF Rep #: [id number] : 1950 M 75 From: Evelia Sanz MD PCP: Care Physician,No Primary Status: REG ER Study:Chest 1 View (Portable) Date of Exam: 04/26/25 Exam# [id number] Ordering Dr: Kailey Berman DO PROCEDURE: CHEST 1 VIEW (PORTABLE) 04/26/2025 REASON FOR EXAM: FALL TECHNIQUE: Frontal view of the chest. COMPARISON: none FINDINGS: Mild pulmonary vascular congestion. No focal consolidation. No pleural effusionor pneumothorax. Cardiac silhouette is within normal limits. No acute fractures. RAD/Chest 1 View (Portable) IMPRESSION: Mild pulmonary vascular congestion. No focal consolidation. No acute fractures. Reading Location: [id number] CC: Dr. Jeannine Berman DO; No Primary Care Physician ~ Analysis Reporting Developer: Signed [facility] Radiology Diagnostic study note 04-26-2025 Note Date & Type Note Facility 04-26-2025 Radiology Diagnostic study note [facility] Imaging Services [address] [place] [id number] Brain/Head without Contrast MR#: [id number] Acct: [id number] Name: BENITO YOUSSEF Rep #: [id number] : 1950 M 75 From: Joss Tomlin MD PCP: Care Physician,No Primary Status: REG ER Study:Brain/Head without Contrast Date of Exa m: 04/26/25 Exam# [id number] Ordering Dr: Kailey Berman DO PROCEDURE: CT BRAIN/HEAD WITHOUT CONTRAST 04/26/2025 REASON FOR EXAM: FALL, UNWITNESSED TECHNIQUE: Procedure Code: CTBR Modality: CT Procedure: BRAIN/HEAD WITHOUT CONTRAST Coronal and Sagittal reconstruction series were provided. One or more dose reduction techniques were used (e.g., Automated exposure control, adjustment of the mA and/or kV according to patient size, use of iterative reconstruction technique. RADIATION DOSE SUMMARY: CTDlvol: 44.99 mGy DLP: 829.85 mGycm COMPARISON: None available. FINDINGS: No acute intracranial hemorrhage, extra-axial collection, mass effect or evidence of acute infarct. Moderate-advanced generalized brain parenchymal volume loss with associated ex vacuo ventricular enlargement. Mild chronic microangiopathic changes. Grossly unremarkable orbits. Intact skull base and calvarium. Well-aerated paranasal sinuses and mastoid air cells. CT/Brain/Head without Contrast IMPRESSION: No acute intracranial abnormality. Moderate-advanced generalized parenchymal volume loss. Reading Location: [id number] CC: Dr. Jeannine Berman DO; No Primary Care Physician ~ Analysis Reporting Developer: Signed [facility] Evaluation note Note Date & Type Note Facility Evaluation note No assessment information availa ble [facility] Work Phone: Reason for referral (narrative) Note Date & Type Note Facility Reason for referral (narrative) No reason for referral information available [facility] Work Phone: Summary Purpose Family History No Family History Records Found Advance Directives Advance Directive Response Recorded Date/ Time Do you have a Healthcare Power of Sound Equipment Mechanic? No April 26, 2025 5:56pm Chief Complaint and Reason for Visit Chief Complaint Admit Date MECHANICAL FALL R HIP PAIN April 10:44pm Additional Source Comments (unrecognized sect ion and content) No Status Records Found INFORMATION SOURCE (unrecogn ized section and content) DATE CREATED AUTHOR 01/02/2023 [facility] Care Teams (unrecognized sec tion and content) Team Status: Active Member Role/Relationship Status Dates No Primary Care Physician Primary Care Provider Active Team Status: Active Member Role/Relationship Status Dates Dr. Jeannine Berman , Emergency Provider Active Start: April 26, 2025 No Primary Care Physician Primary Care Provider Active Start: April 26, 2025 Dr. Janay Neal MD Admit Provider Active St art: April 26, 2025 Dr. Janay Neal MD Attending Provider Active Start: April 26, 2025 Goals (unrecognized section and content) Goals may be documented in a n alternate section FOR RECORDS PERTAINING TO PATIENTS WHO ARE OR HAVE BEEN ENROLLED IN A CHEMICAL DEPENDENCY/SUBSTANCEABUSE PROGRAM, SOME INFORMATION MAY BE OMITTED. This clinical summary was aggregated from multiple sources. Caution should be exercised in using it in the provision of clinical care. This summary normalizes information from multiple sources, and as a consequence, information in this document may materially change the coding, format and clinical context of patient data. In addition, data may be omitted in some cases. CLINICAL DECISIONS SHOULD BE BASED ON THE PRIMARY CLINICAL RECORDS. [facility] [employer] [facility]. provides no warranty or guarantee of the accuracy or completeness of information in this document.
[2025-04-26 23:51] VITALS: BMI 26.4
[2025-04-27 00:02] LABS: Procalcitonin 0.03 ng/mL (<=0.10)
[2025-04-27] MEDS: 0.9% Normal Saline (1000mL) 1,000 ML 100 ML IV (00:41)
[2025-04-27] MEDS: Arthritis Pain Compound 60 CLICK TUBE TOPICAL ×3 (00:43→21:01)
[2025-04-27 00:47] VITALS: PULSE 92
[2025-04-27 05:18] VITALS: BP 150/67; PULSE 88; RESP 17; TEMP 37; O2SAT 93
[2025-04-27 05:20] VITALS: BMI 26.9
--- NOTE | 2025-04-27 07:40 | PCM.PN.HOSP ---
Reason for Visit Chief Complaint: Fall, R hip pain. Objective Data Objective Data Vital Signs: Vital Signs Temp Pulse Resp BP Pulse Ox O2 Del Method 98.6 F 88 17 150/67 H 93 Room Air 04/27/25 05:18 04/27/25 05:18 04/27/25 05:18 04/27/25 05:18 04/27/25 05:18 04/27/25 05:18 Oxygen Delivery Method Room Air Weight: 85.2 kg Body Mass Index (BMI) 26.9 Intake & Output: Intake and Output for Last 24 Hours 04/25/25 04/26/25 04/27/25 23:59 23:59 23:59 Intake Total 575 / 575 Output Total 1325 / 1325 Balance 575 / 575 -1325 / -1325 Lab / Micro Data 04/27/25 08:18 04/26/25 19:29 Labs: Laboratory Results - last 24 hr 04/26/25 19:20: Urine Color Yellow, Urine Clarity Clear, Urine pH 6.5, Ur Specific [place] 1.015, Urine Protein 30 H, Urine Glucose (UA) Normal, Urine Ketones Negative, Urine Occult Blood Negative, Urine Nitrite Negative, Urine Bilirubin Negative, Urine Urobilinogen Normal, Ur Leukocyte Esterase Negative, Urine RBC 0-5 SEEN, Urine WBC 0-5 SEEN, Ur Squamous Epith Cells 0-5 SEEN, Urine Bacteria 0 SEEN, Urine Mucus 0 SEEN 04/26/25 19:29: WBC 16.3 H, RBC 4.58 L, Hgb 14.0, Hct 40.8, MCV 89.1, MCH 30.6, MCHC 34.3, RDW Std Deviation 40.4, RDW Coeff of Neymar 12.4, Plt Count 145 L, MPV 9.1, Immature Gran % (Auto) 0.600, Neut % (Auto) 86.1 H, Lymph % (Auto) 6.6 L, [place] % (Auto) 6.5, Eos % (Auto) 0.0, Baso % (Auto) 0.2, Absolute Neuts (auto) 14.0 H, Absolute Lymphs (auto) 1.08, Nucleated RBC % 0, Sodium 137, Potassium 3.9, Chloride 103, Carbon Dioxide 21.8, Anion Gap 13, BUN 17, Creatinine 0.99, Estim Creat Clear Calc 71.11, Est GFR (MDRD) Non-Af 79, BUN/Creatinine Ratio 16.8, Glucose 131 H, Calcium 9.1, NT pro BNP II 64, Procalcitonin 0.03 Radiography Diagnostic Testing: Radiology Impression Brain CT 04/26/25 19:24 IMPRESSION: No acute intracranial abnormality. Moderate-advanced generalized parenchymal volume loss. Reading Location: [facility] Chest X-Ray 04/26/25 19:24 IMPRESSION: Mild pulmonary vascular congestion. No focal consolidation. No acute fractures. Reading Location: [facility] Hip/Pelvis X-Ray 04/26/25 19:45 IMPRESSION: No acute fracture or dislocation. Reading Location: [facility] Rhythm Strip Rhythm Strip: Sinus Tach Rate: 111 Ectopy: None Physical Exam Narrative GENERAL: In no apparent distress HEENT: Atraumatic; normocephalic EYES; Anicteric, Normal Conjunctiva NECK; supple, normal thyroid, RESPIRATORY: Diminished to auscultation CARDIOVASCULAR: Regular S1 S2, GI: soft, normoactive bowel sounds, : No Renal angle tenderness; EXTREMITIES: No edema, no clubbing, MUSCULOSKELETAL: no muscle wasting NEURO: no lateralizing signs. SKIN: No Rash PSYCH; Flat affect Assessment & Plan Assessment/Plan (1) Right hip pain: PLAN: Plan Patient is a 75-year-old gentleman resident at an independent living facility who presented with a fall. Imaging studies did not show any acute fracture or dislocation. Admitted to regular nursing floor as a case of adult failure to thrive 1. Acute debility Secondary to nonsyncopal mechanical fall with significant right hip pain. Imaging studies did not show any fracture. Patient has been admitted to regular nursing floor managed with pain management. Requested for PT/OT eval and social worker clinical to assist with discharge planning 2. Bilateral lower extremity venous insufficiency ? Odnal wrapped. Consult placed to wound care nurse 3. Hypertension ? Blood pressure controlled, home medications continued with dose adjustment as needed 4. Depression with anxiety ? Will continue patient home regimen including citalopram and trazodone at night 6. GERD ? On PPI 7. DVT prophylaxis -Subcu Lovenox Time spent in the patient's overall evaluation,decision-making process, review of diagnostic data, adjustment of management, discussion with other providers, nursing nursing and ancillary staff involved in patient's care documentation, 36 Minutes Charges/Coding Visit Charges Inpatient E&M: 85288 Subs Hosp L2
[2025-04-27 08:35] LABS: Hematocrit 35.8 % (40-54); Hemoglobin 12.3 g/dL (13.0-16.5); Immature Granulocytes Count 0.030 X10^3/uL (0.0-0.0); Mean Corp Hgb Conc 34.4 g/dL (32-36); Mean Corpuscular Volume 89.3 fL (80-94); Mean Platelet Vol. 9.1 fl (6.2-12.0); NRBC Flagged by Analyzer 0 % (0-5); Platelet Count 120 K/mm3 (150-450); RBC Distribution Width CV 12.5 % (11.6-14.6); RBC Distribution Width SD 40.8 fl (35.1-43.9); Red Blood Count 4.01 M/mm3 (4.6-6.2); White Blood Count 8.5 K/mm3 (4.4-11.0)
[2025-04-27 09:10] VITALS: O2SAT 93
[2025-04-27 09:24] LABS: AST(SGOT) 20 U/L (<=37); Alanine Aminotransfer ALT/SGPT 14 U/L (<=46); Albumin, Serum 3.5 g/dL (3.4-4.8); Alkaline Phosphatase 92 U/L (40-129); Anion Gap 8 (5-15); BUN 10 mg/dL (4-19); BUN/Creat Ratio 11.7 RATIO (10-20); Calcium,Total 8.2 mg/dL (7.6-11.0); Carbon Dioxide 24.4 mmol/L (21.0-32.0); Chloride 108 mmol/L (98-108); Estimated Creatinine Clearance 72.91 ml/min (50-250); Globulin 2.3 g/dL (2.2-4.2); Glucose 97 mg/dL (70-99); Potassium 3.6 mmol/L (3.3-5.1)
[2025-04-27 10:13] VITALS: BP 170/86; PULSE 95; RESP 16; TEMP 36.7; O2SAT 95
--- NOTE | 2025-04-27 10:20 | CASEMGMT ---
Addendum entered by Fern Bautista 04/27/25 15:24: BINTA received a return call from [facility] case loader operator, Clementine. Clementine reports that pt does have a [facility] sister, Radha, . Clementine indicates that pt has a care team through physician. No other services reported. Pt chart updated to reflect PCP and HCPOA. FAHAD Nance Addendum entered by Fern Bautista 04/27/25 11:14: BINTA verified pt does have PCP Dr Barros at [facility]. Pt also has a home health care case manager, Jemma, at [facility]. No reported guardian. BINTA called and left a voicemail at [place] to confirm. FAHAD Nance Original Note: Social Work- BINTA spoke with Kang, at [facility] where pt has resided for 17 years. Kang reports that pt is O x 1 at baseline, but is typically calm and cooperative. Kang reports that pt doesn't like hospitals, which may account for agitation. Kang reports that pt has refused to go to [facility] for years and, therefore, ends up at [place]. Kang reports that pt only has VA coverage, that pt has no next of kin, and no directives. Kang reports pt is independent at baseline; no assistive devices for ambulation, but noted that they are handicap accessible and as long as pt can move around a loittle, that he can return back. Kang reports that the skilled nursing staff will transport pt at discharge. BINTA remains available to follow. FAHAD Nance
[2025-04-27] MEDS: Cholecalciferol (VIT D3) 25 MCG TABLET (1,000 UNITS) 50 MCG PO (10:38)
[2025-04-27 14:24] VITALS: BP 134/65; PULSE 85; RESP 16; TEMP 37.2; O2SAT 95
--- NOTE | 2025-04-27 14:44 | CHAPLAIN ---
Type of Pastoral Visit _x__ Initial Visit ___ Follow-up Visit ___ On-call Visit ___ General Patient Visit ___ Spiritual Assessment ___ Family Conference ___ Bereavement ___ Rapid Response ___ Code Blue ___ Other (describe below) Pastoral Care Referral From ___ Patient ___ Family ___ Nurse ___ Physician ___ House Steward/Stewardess ___ Water Jet Loom Fixer _x__ Other (describe below) Sacrament/Intervention ___ Active listening ___ Anointing ___ Hinduism ___ Bereavement ___ Communion ___ Pam exploration ___ ___ Life review _x__ Prayer ___ Reconciliation ___ Sacrament of Sick _x__ Supportive presence ___ Wedding ___ Other (describe below) Pastoral Comments introduced self and role to the patient; pt does not engage in a conversation but does speak in phrases or gives one word answers to questions; pt wanted his lunch tray moved and his bed covers adjusted for warmth; these matters were completed; pt mentioned his hip and his pain several times; focused on the reason for being in the hospital and how that our goal was for him to recover well; sat at bedside and gave some conversation to occupy the patient; pt is calm; pt is encouraged to rest now that lunch is over and he is settled into the bed
--- NOTE | 2025-04-27 15:36 | CASEMGMT ---
ELIAS Pt is cognitively unable to comprehend ELIAS. VM left for pts sister/HC POA (Radha). Awaiting response. Lilly Monroy, Discharge Planning Asst
[2025-04-27 20:52] VITALS: BP 163/80; PULSE 110; RESP 20; TEMP 36.9; O2SAT 94
--- NOTE | 2025-04-28 00:04 | PCM.HOSP.N ---
Hospitalist Note Pt up in dayna-chair, confused with agitation behaviors requiring continuous staff observation at nursing station. Continued issues of urinary retention, masters catheter placed on dayshift after multiple straight caths, and pt pulled it out. Nrsg does not feel that pt will allow satellite project site monitor to remain in place in order to give the PRN IV haloperidol. Orders placed for tamsulosin 0.4mg PO and risperidone 0.25mg Rylan now and daily.
[2025-04-28 03:42] VITALS: BMI 26.3
--- NOTE | 2025-04-28 06:57 | PCM.PN.HOSP ---
Reason for Visit Chief Complaint: Fall, R hip pain. Subjective Subjective Patient seen much, per nursing staff. Plans for patient to be assessed for discharge back to his long-term acute facility Objective Data Objective Data Vital Signs: Vital Signs Temp Pulse Resp BP Pulse Ox O2 Del Method 98.4 F 110 H 20 H 163/80 H 94 Room Air 04/27/25 20:52 04/27/25 20:52 04/27/25 20:52 04/27/25 20:52 04/27/25 20:52 04/27/25 20:52 Oxygen Delivery Method Room Air Weight: 83.5 kg Body Mass Index (BMI) 26.3 Intake & Output: Intake and Output for Last 24 Hours 04/26/25 04/27/25 04/28/25 23:59 23:59 23:59 Intake Total 575 / 575 1200 / 1200 800 / 800 Output Total 3350 / 3350 1150 / 1150 Balance 575 / 575 -2150 / -2150 -350 / -350 Lab / Micro Data 04/28/25 06:51 04/28/25 06:51 Labs: Laboratory Results - last 24 hr 04/27/25 08:18: WBC 8.5, RBC 4.01 L, Hgb 12.3 L, Hct 35.8 L, MCV 89.3, MCH 30.7, MCHC 34.4, RDW Std Deviation 40.8, RDW Coeff of Neymar 12.5, Plt Count 120 L, MPV 9.1, Immature Gran % (Auto) 0.400, Neut % (Auto) 69.4, Lymph % (Auto) 17.0 L, [place] % (Auto) 9.9, Eos % (Auto) 2.7, Baso % (Auto) 0.6, Absolute Neuts (auto) 5.9, Absolute Lymphs (auto) 1.44, Nucleated RBC % 0, Sodium 141, Potassium 3.6, Chloride 108, Carbon Dioxide 24.4, Anion Gap 8, BUN 10, Creatinine 0.89, Estim Creat Clear Calc 72.91, Est GFR (MDRD) Non-Af 89, BUN/Creatinine Ratio 11.7, Glucose 97, Calcium 8.2, Total Bilirubin 0.81, AST 20, ALT 14, Alkaline Phosphatase 92, Total Protein 5.8 L, Albumin 3.5, Globulin 2.3, Albumin/Globulin Ratio 1.5 Rhythm Strip Rhythm Strip: Sinus Tach Rate: 111 Ectopy: None Physical Exam Narrative GENERAL: In no apparent distress HEENT: Atraumatic; normocephalic EYES; Anicteric, Normal Conjunctiva NECK; supple, normal thyroid, RESPIRATORY: Diminished to auscultation CARDIOVASCULAR: Regular S1 S2, GI: soft, normoactive bowel sounds, : No Renal angle tenderness; EXTREMITIES: No edema, no clubbing, MUSCULOSKELETAL: no muscle wasting NEURO: no lateralizing signs. SKIN: No Rash PSYCH; Flat affect Assessment & Plan Assessment/Plan (1) Right hip pain: PLAN: Plan Patient is a 75-year-old gentleman resident at an independent living facility who presented with a fall. Imaging studies did not show any acute fracture or dislocation. Admitted to regular nursing floor as a case of adult failure to thrive 1. Acute debility Secondary to nonsyncopal mechanical fall with significant right hip pain. Imaging studies did not show any fracture. Patient has been admitted to regular nursing floor managed with pain management. Requested for PT/OT eval and social worker health services to assist with discharge planning ? Patient did tolerate PT plans for patient [facility] 2. Bilateral lower extremity venous insufficiency ? Donal wrapped. Consult placed to wound care nurse 3. Hypertension ? Blood pressure controlled, home medications continued with dose adjustment as needed 4. Depression with anxiety ? Will continue patient home regimen including citalopram and trazodone at night 6. GERD ? On PPI 7. DVT prophylaxis -Subcu Lovenox Time spent in the patient's overall evaluation,decision-making process, review of diagnostic data, adjustment of management, discussion with other providers, nursing nursing and ancillary staff involved in patient's care documentation, 35 Minutes Charges/Coding Visit Charges Inpatient E&M: 37823 Subs Hosp L2
[2025-04-28 07:01] LABS: Hematocrit 37.1 % (40-54); Hemoglobin 12.8 g/dL (13.0-16.5); Immature Granulocytes Count 0.050 X10^3/uL (0.0-0.0); Mean Corp Hgb Conc 34.5 g/dL (32-36); Mean Corpuscular Volume 89.4 fL (80-94); Mean Platelet Vol. 9.1 fl (6.2-12.0); NRBC Flagged by Analyzer 0 % (0-5); Platelet Count 122 K/mm3 (150-450); RBC Distribution Width CV 12.5 % (11.6-14.6); RBC Distribution Width SD 40.8 fl (35.1-43.9); Red Blood Count 4.15 M/mm3 (4.6-6.2); White Blood Count 11.3 K/mm3 (4.4-11.0)
[2025-04-28 07:02] VITALS: BP 135/73; PULSE 92; RESP 16; TEMP 36.9; O2SAT 97
[2025-04-28 08:03] LABS: Anion Gap 11 (5-15); BUN 11 mg/dL (4-19); BUN/Creat Ratio 12.5 RATIO (10-20); Calcium,Total 8.4 mg/dL (7.6-11.0); Carbon Dioxide 23.5 mmol/L (21.0-32.0); Chloride 103 mmol/L (98-108); Estimated Creatinine Clearance 76.34 ml/min (50-250); Glucose 113 mg/dL (70-99); Magnesium 2.2 mg/dL (1.5-2.2); Potassium 3.7 mmol/L (3.3-5.1)
--- NOTE | 2025-04-28 09:02 | CASEMGMT ---
Discharge Planning Call placed to pts sister, Radha White. Radha confirmed that she is HC POA and that [facility] this. She is his only living relative and had no additional contacts to add. SW updated and contact information updated in [employer]. Lilly Monroy DC Planning Asst.
[2025-04-28] MEDS: Arthritis Pain Compound 60 CLICK TUBE TOPICAL ×2 (09:04→22:51)
[2025-04-28] MEDS: Cholecalciferol (VIT D3) 25 MCG TABLET (1,000 UNITS) 50 MCG PO (09:05)
[2025-04-28 09:12] VITALS: BP 140/77; PULSE 96; RESP 16; TEMP 36.6; O2SAT 96
--- NOTE | 2025-04-28 09:48 | DS.PCM_ITS ---
Providers Date of Admission: 04/26/25 Date of Discharge: 04/28/25 Primary Care Physician: Deidre Barros, DONNA Reason For Visit: MECHANICAL FALL R HIP PAIN Diagnosis Discharge Diagnosis (1) Right hip pain: Status: Acute Code(s): M25.551 - Pain in right hip Plan Patient is a 75-year-old gentleman resident at an independent living facility who presented with a fall. Imaging studies did not show any acute fracture or dislocation. Admitted to regular nursing floor as a case of adult failure to thrive 1. Acute debility Secondary to nonsyncopal mechanical fall with significant right hip pain. Imaging studies did not show any fracture. Patient has been admitted to regular nursing floor managed with pain management. Requested for PT/OT eval and social sciences instructor to assist with discharge planning ? Patient did tolerate PT plans for patient to be discharged back to his long term facility 2. Bilateral lower extremity venous insufficiency ? Donal wrapped. Consult placed to wound care nurse 3. Hypertension ? Blood pressure controlled, home medications continued with dose adjustment as needed 4. Depression with anxiety ? Will continue patient home regimen including citalopram and trazodone at night 6. GERD ? On PPI 7. DVT prophylaxis -Subcu Lovenox Time spent in the patient's overall evaluation,decision-making process, review of diagnostic data, adjustment of management, discussion with other providers, nursing nursing and ancillary staff involved in patient's care documentation, 35 Minutes Medications at Discharge Home Medications amlodipine 5 mg tablet 5 mg PO DAILY 11/14/22 aspirin 81 mg chewable tablet 81 mg PO DAILY 11/14/22 benztropine 2 mg tablet 2 mg PO QHS 11/14/22 cholecalciferol (vitamin D3) 50 mcg (2,000 unit) capsule 50 mcg PO DAILY 11/14/22 citalopram 10 mg tablet 10 mg PO DAILY 11/14/22 loratadine 10 mg tablet 10 mg PO DAILY 11/14/22 pantoprazole 20 mg tablet,delayed release 20 mg PO DAILY 11/14/22 trazodone 100 mg tablet 100 mg PO QHS 11/14/22 haloperidol 20 mg tablet 20 mg PO QHS 04/26/25 Physical Exam Narrative GENERAL: cooperative HEENT: Atraumatic; normocephalic EYES; Anicteric, Normal Conjunctiva NECK; supple, normal thyroid, RESPIRATORY: Diminished to auscultation CARDIOVASCULAR: Regular S1 S2, GI: soft, normoactive bowel sounds, : No Renal angle tenderness; EXTREMITIES: No edema, no clubbing, MUSCULOSKELETAL: no muscle wasting NEURO: Awake; no lateralizing signs. SKIN: No Rash PSYCH; Flat affect Weight / BMI Weight Weight: 83.5 kg Body Mass Index (BMI) 26.3 ABG / Lab / Microbiology Data 04/28/25 06:51 04/28/25 06:51 Laboratory: Laboratory Results - last 24 hr 04/28/25 06:51: WBC 11.3 H, RBC 4.15 L, Hgb 12.8 L, Hct 37.1 L, MCV 89.4, MCH 30.8, MCHC 34.5, RDW Std Deviation 40.8, RDW Coeff of Neymar 12.5, Plt Count 122 L, MPV 9.1, Immature Gran % (Auto) 0.400, Neut % (Auto) 66.2, Lymph % (Auto) 17.8 L , [place] % (Auto) 11.0 H, Eos % (Auto) 4.0, Baso % (Auto) 0.6, Absolute Neuts (auto) 7.5, Absolute Lymphs (auto) 2.01, Nucleated RBC % 0, Sodium 138, Potassium 3.7, Chloride 103, Carbon Dioxide 23.5, Anion Gap 11, BUN 11, Creatinine 0.85, Estim Creat Clear Calc 76.34, Est GFR (MDRD) Non-Af 90, BUN/Creatinine Ratio 12.5, Glucose 113 H, Calcium 8.4, Phosphorus 3.1, Magnesium 2.2 D/C Instructions Discharge Activity: Return to Normal Activity Call your doctor if you observe: Fever of 101 or Higher, Shortness of breath, Fainting spells and Chest pain DC O2, CPAP, BIPAP Needs Home O2 Discharge instructions: No Meaningful Use Info Meaningful Use Meaningful Use Diagnoses (Choose all that apply): None applicable Discharge Plan Admission Admit Date/Time: 04/26/25 22:44 Attending Provider: Juan Antonio Michelle Primary Care Provider: Deidre Barros Consulting Providers: Janay Neal Discharge Orders/Prescriptions Prescriptions: Continued amlodipine 5 mg tablet 5 mg PO DAILY aspirin 81 mg tablet,chewable 81 mg PO DAILY cholecalciferol (vitamin D3) 50 mcg (2,000 unit) capsule 50 mcg PO DAILY benztropine 2 mg tablet 2 mg PO QHS citalopram 10 mg tablet 10 mg PO DAILY loratadine 10 mg tablet 10 mg PO DAILY pantoprazole 20 mg tablet,delayed release (DR/EC) 20 mg PO DAILY trazodone 100 mg tablet 100 mg PO QHS haloperidol 20 mg tablet 20 mg PO QHS Referrals / Follow Up: Care Physician,No Primary [Non-Staff] - Deidre Barros NIGHT SUPERVISOR-C [Primary Care Provider] - Disposition Disposition (needs filled in before D/C Order can be placed): NonSkilled NH/Intermed Care Charges/Coding Visit Charges Inpatient E&M: 25267 Disch Hosp >30min
--- NOTE | 2025-04-28 09:50 | PCM.TXEXTCAR ---
Diet Diet Order/Speech Therapy: INPATIENT Hospital Diet / Speech Therapy Order(s) 04/26/25 23:24 Diet: Cardiac - Heart Healthy Food consistency:: Regular Liquid Consistency:: Regular/Thin DC O2, CPAP, BIPAP needs Home O2 Discharge instructions: No Therapies Physical Therapy: Eval and Treat Occupational Therapy: Eval and Treat Problem/Diagnosis (1) Right hip pain: Status: Acute Code(s): M25.551 - Pain in right hip Plan Patient is a 75-year-old gentleman resident at an independent living facility who presented with a fall. Imaging studies did not show any acute fracture or dislocation. Admitted to regular nursing floor as a case of adult failure to thrive 1. Acute debility Secondary to nonsyncopal mechanical fall with significant right hip pain. Imaging studies did not show any fracture. Patient has been admitted to regular nursing floor managed with pain management. Requested for PT/OT eval and social worker school to assist with discharge planning ? Patient did tolerate PT plans for patient to be discharged back to his alf facility 2. Bilateral lower extremity venous insufficiency ? Donal wrapped. Consult placed to wound care nurse 3. Hypertension ? Blood pressure controlled, home medications continued with dose adjustment as needed 4. Depression with anxiety ? Will continue patient home regimen including citalopram and trazodone at night 6. GERD ? On PPI 7. DVT prophylaxis -Subcu Lovenox Time spent in the patient's overall evaluation,decision-making process, review of diagnostic data, adjustment of management, discussion with other providers, nursing nursing and ancillary staff involved in patient's care documentation, 35 Minutes Allergies/Procedures Done in Hospital Allergies No Known Allergies Allergy (Unverified 11/14/22 13:11) Type of Care/Length of Stay Estimated LOS: More Than 30 Days Type of Care Needed: Intermediate Rehab Potential: Fair Prognosis: Fair Additional Orders/Day of Discharge Day of Discharge: 04/28/25 Discharge Plan Admission Admit Date/Time: 04/26/25 22:44 Attending Provider: Juan Antonio Michelle Primary Care Provider: Deidre Barros Consulting Providers: Janay Neal Discharge Orders/Prescriptions Prescriptions: Continued amlodipine 5 mg tablet 5 mg PO DAILY aspirin 81 mg tablet,chewable 81 mg PO DAILY cholecalciferol (vitamin D3) 50 mcg (2,000 unit) capsule 50 mcg PO DAILY benztropine 2 mg tablet 2 mg PO QHS citalopram 10 mg tablet 10 mg PO DAILY loratadine 10 mg tablet 10 mg PO DAILY pantoprazole 20 mg tablet,delayed release (DR/EC) 20 mg PO DAILY trazodone 100 mg tablet 100 mg PO QHS haloperidol 20 mg tablet 20 mg PO QHS Referrals / Follow Up: Care Physician,No Primary [Non-Staff] - Deidre Barros INSTRUMENTATION SUPERVISOR-C [Primary Care Provider] - Disposition Disposition (needs filled in before D/C Order can be placed): NonSkilled NH/Intermed Care
--- NOTE | 2025-04-28 13:50 | CASEMGMT ---
Social Work- SW updated [facility], Janeen, that pt will remain hospitalized overnight. Janeen expressed understanding. BINTA remains available to follow. FAHAD Nance
[2025-04-28 14:14] VITALS: BP 122/65; PULSE 85; RESP 16; TEMP 36.9; O2SAT 93
--- NOTE | 2025-04-28 18:02 | NURSING ---
SISTER IN TO VISIT PT. UPDATED ON PT STATUS AND POSSIBLE D/C TOMORROW. REVIEWED THAT SISTER IS POA. SISTER STATES SHE MAY WANT PT TO GO TO DC HOME IN [place]. WILL INFORM LEAK INSPECTOR.
[2025-04-28] MEDS: 0.9% Saline Lock 10 ML Syringe IV (22:52)
[2025-04-28 23:05] VITALS: BP 123/68; PULSE 87; RESP 16; TEMP 37.1; O2SAT 92
[2025-04-29 06:00] VITALS: BMI 26.7
[2025-04-29 06:28] VITALS: BP 107/57; PULSE 81; RESP 16; TEMP 37; O2SAT 94
[2025-04-29 08:05] LABS: Hematocrit 34.5 % (40-54); Hemoglobin 11.9 g/dL (13.0-16.5); Immature Granulocytes Count 0.050 X10^3/uL (0.0-0.0); Mean Corp Hgb Conc 34.5 g/dL (32-36); Mean Corpuscular Volume 88.9 fL (80-94); Mean Platelet Vol. 9.2 fl (6.2-12.0); NRBC Flagged by Analyzer 0 % (0-5); Platelet Count 134 K/mm3 (150-450); RBC Distribution Width CV 12.7 % (11.6-14.6); RBC Distribution Width SD 40.8 fl (35.1-43.9); Red Blood Count 3.88 M/mm3 (4.6-6.2); White Blood Count 9.3 K/mm3 (4.4-11.0)
[2025-04-29 08:46] LABS: Anion Gap 9 (5-15); BUN 16 mg/dL (4-19); BUN/Creat Ratio 18.2 RATIO (10-20); Calcium,Total 8.4 mg/dL (7.6-11.0); Carbon Dioxide 24.8 mmol/L (21.0-32.0); Chloride 104 mmol/L (98-108); Estimated Creatinine Clearance 73.74 ml/min (50-250); Glucose 100 mg/dL (70-99); Potassium 3.8 mmol/L (3.3-5.1)
[2025-04-29 09:49] VITALS: BP 125/75; PULSE 94; RESP 18; TEMP 36.7; O2SAT 95
[2025-04-29] MEDS: Arthritis Pain Compound 60 CLICK TUBE TOPICAL (09:52)
[2025-04-29] MEDS: Cholecalciferol (VIT D3) 25 MCG TABLET (1,000 UNITS) 50 MCG PO (09:52)
--- NOTE | 2025-04-29 10:34 | CASEMGMT ---
Social Work-Discharge- Hospitalist feels pt is medically ready for discharge. BINTA received a message from mmd unit teacher that Janeen at [facility] will be out of the office today, but pt can return at any time today. BINTA called pt sister Radha to discuss discharge plans, as it was noted by nursing that pt sister may want pt to [facility] [place]. Radha reports that she has spoken with [facility] staff and is agreeable to pt return. BINTA called and set up transportation with [facility] for 12:30 sweet pickled fruit maker. BINTA called [facility] to notify of discharge time. SW left a message, as staff previously indicated they would not be in the office. BINTA called pt sister and updated on time; pt sister thankful for update. Bedside nurse updated on transport time. BINTA provided transport form for cot transport, pt O x1, to mmd unit teacher. Plan: Return to [facility] FAHAD Nance
--- NOTE | 2025-04-29 13:28 | PHA.DC.MR.R ---
Pharmacy [facility] Reconciliation Pharmacy Service has performed discharge medication reconciliation for this patient. The patient's discharge medication list was reviewed for discrepancies and discrepancies were resolved. Medications at Discharge Home Medications amlodipine 5 mg tablet 5 mg PO DAILY 11/14/22 aspirin 81 mg chewable tablet 81 mg PO DAILY 11/14/22 benztropine 2 mg tablet 2 mg PO QHS 11/14/22 cholecalciferol (vitamin D3) 50 mcg (2,000 unit) capsule 50 mcg PO DAILY 11/14/22 citalopram 10 mg tablet 10 mg PO DAILY 11/14/22 loratadine 10 mg tablet 10 mg PO DAILY 11/14/22 pantoprazole 20 mg tablet,delayed release 20 mg PO DAILY 11/14/22 trazodone 100 mg tablet 100 mg PO QHS 11/14/22 haloperidol 20 mg tablet 20 mg PO QHS 04/26/25 tamsulosin 0.4 mg capsule 0.4 mg PO BID #0 caps 04/29/25
== END 2025-04-29 12:38 | disposition home or self-care (01) ==
LOC: ED 21:16 → MS3 22:51
PROVIDERS: Admitting Provider Family Medicine; Emergency Provider Emergency Medicine; PCP Nurse Practitioner Family; Visit Provider Internal Medicine
DX: M25.551 Pain in right hip (principal); F03.90 Unspecified dementia, unspecified severity, without behavioral disturbance, psychotic disturbance, mood disturbance, and anxiety; R53.81 Other malaise; D72.829 Elevated white blood cell count, unspecified; I12.9 Hypertensive chronic kidney disease with stage 1 through stage 4 chronic kidney disease, or unspecified chronic kidney disease; Z87.891 Personal history of nicotine dependence; Z79.82 Long term (current) use of aspirin; K21.9 Gastro-esophageal reflux disease without esophagitis; R33.9 Retention of urine, unspecified; N18.2 Chronic kidney disease, stage 2 (mild); E78.5 Hyperlipidemia, unspecified; Z79.899 Other long term (current) drug therapy; I87.2 Venous insufficiency (chronic) (peripheral); F41.8 Other specified anxiety disorders; R60.0 Localized edema; R62.7 Adult failure to thrive; Z91.81 History of falling; R31.9 Hematuria, unspecified; R94.31 Abnormal electrocardiogram [ECG] [EKG]; R00.0 Tachycardia, unspecified
CPT/HCPCS: 36415; 51702; 70450; 71045; 73502; 80048; 80053; 81001; 83735; 83880; 84100; 84145; 85025; 93005; 96361; 96372; 96374; 96375; 97162; 97166; 99221; 99285; A4216; G0378; J2405